=== PATIENT | male | born 1960 | race Caucasian/White ===

== ENCOUNTER → 2017-12-24 | Outpatient (CLI) | payer OTHER ==
[~2017-12-24] MED LIST: ASPI-630 PO; ATORVASTATIN CA80 MG PO; LISI40TA PO; METO25TA4 PO
--- NOTE | 2017-12-24 12:15 | RAD ---
MR#: [id number] Date of Study: 12/24/2017 Ordering Physician: ESSENCE ANTHONY, Referring Physician: SANDIE GARRETT Tech: RT Jules Cherry) (N) APPROVED REPORT Test Type: Exercise Stress Nurse/Tech: RT Jo Ann (Izzy) (N) Test Indications: hypertension Cardiac History: CABG x 5 bypass 2014 Medications: see EHR Medical History: see EHR Resting ECG: sinus rhythm Resting Heart Rate: 70 bpm Resting Blood Pressure: 129/84mmHg Pretest Chest Pain: None Nurse/Tech Notes Consent: The procedure was explained to the patient in lay terms. Informed consent was witnessed. Brando eout was entered into [employer]. History and Stress Test performed by RT Jules Cherry) (N) Stress Symptoms short of breath POST EXERCISE Reason for Termination: Fatigue Target HR: Yes Max HR: 150 bpm 93% of Maximum Predicted HR: 161 bpm Exercise duration: 5:02 min:sec, 2 Stage Exercise capacity: 7METs Max Blood Pressure: 180/77mmHg Blood Pressure response to exercise: Normal blood pressure response during stress. Chest Pain: No. INTERPRETATION Stress EKG Conclusion: Baseline EKG showed sinus rhythm. No ischemic changes at peak stress. No arr hythmias. Imaging Protocol IMAGE PROTOCOL: Rest Tc-99m/stress Tc-99m 1 day Rest: Stress: Viability: Radiopharm.Tc99m KgesobnouSp18z Sestamibi Dose11.6mCi 34mCi Duration 15min. 10min. Img Date 12/24/2017 12/24/2017 Inj-Img [id number]. 60min. Rest Admin Site:IV - Right AntecubitalAdministrator: RT Jo Ann (Izzy)(N) Stress Admin Site: IV - Right AntecubitalAdministrator: RT Jules Cherry)(N) STRESS DATA End Diast. Vol.76.0mlAv. Heart Rate86.0bpm LVEDV index BSA1.0mlCardiac Output0.1L/min End Syst. Vol.14.0mlCO Index BSA5.3L/min LVESV index BSA0.0mlMyocardial Aprg993.0g Eject. Eonmtbus75.0% Stress Rates Pk. Fill Rate2.94EDV/secLVtime Pk. Fill 181.66msec Pk. Empty Rate4.66ESV/secLVtime Pk. Umxga515.73msec 1/3 Pk. Fill1.91EDV/sec Stress Scores Regional WT0.00Summed WT0.00 Regional WM0.00Summed WM3.00 Study quality was good. Left Ventricular size was Normal at Rest and Stress. Lung uptake was Normal. Left Ventricular ejection fraction is 82%. The rest and stress images show normal perfusion, normal contraction and thickening. LV Perf. Quant 17 Seg. SSS0.00 17 Seg. SRS0.00 17 Seg. SDS0.00 Stress Defect Extent (% LAD)0.00Rest Defect Extent (% LAD)0.00Rev. Defect Extent (% LAD)0.00 Stress Defect Extent (% LCX) 0.00Rest Defect Extent (% LCX)0.00Rev. Defect Extent (% LCX)0.00 Stress Defect Extent (% RCA)0.00Rest Defect Extent (% RCA)0.00Rev. Defect Extent (% RCA)0.00 Stress Defect Extent (% GAYATRI)0.00Rest Defect Extent (% GAYATRI)0.00Rev. Defect Extent (% GAYATRI)0.00 Conclusion 1. Treadmill exercise cardioisotope stress test did not show any evidence of ischemia or infarct. 2. Normal left ventricular systolic function with ejection fraction calculated at 82%. 3. Low risk for cardiac events. Signed by : Benji Cortez, Electronically Approved : 12/24/2017 12:14:33
--- NOTE | 2017-12-24 12:17 | CARD ---
MR#: [id number] Date of Study: 12/24/2017 Ordering Physician: ESSENCE ANTHONY, Referring Physician: ESSENCE ANTHONY, Tech: BERLIN Negron APPROVED REPORT EXAM: Two-dimensional and M-mode echocardiogram with Doppler and color Doppler. Other Information Quality : AverageHR: 87bpm INDICATION LV Function:SystolicDiastolic Post Op 2D DIMENSIONS RVDd3.6 (2.9-3.5cm)Left Atrium(2D)3.0 (1.6-4.0cm) IVSd1.7 (0.7-1.1cm)Aortic Root(2D)2.6 (2.0-3.7cm) LVDd3.8 (3.9-5.9cm)LVOT Diameter2.1 (1.8-2.4cm) PWd1.6 (0.7-1.1cm)LVDs2.3 (2.5-4.0cm) FS (%) 39.7 %SV42.9 ml LVEF(%)71.0 (>50%) Aortic Valve AoV Peak Tristan.80.8cm/sAoV VTI16.1cm AO Peak GR.2.6mmHgLVOT Peak Tristan.72.9cm/s LVOT VTI 13.97cmAO Mean GR.2mmHg CHITO (VMAX)3.08xw0TDI (VTI)3.09cm2 Mitral Valve MV E Uybqoxzp59.8cm/sMV DECEL EMUY110nw MV A Gpekceba21.5cm/sE/A Ratio0.9 Pulmonary Valve PV Peak Cycbvzqo14.9cm/sPV Peak Grad.3mmHg Tricuspid Valve TR P. Lkiozcyu00zw/sTR Peak Gr.4mmHg LEFT VENTRICLE The left ventricle is normal size. There is moderate concentric left ventricular hypertrophy. The lef t ventricular systolic function is normal. The ejection fraction is estimated at 60-65%. There is nor mal LV segmental wall motion. Transmitral Doppler flow pattern is Grade I-abnormal relaxation pattern . RIGHT VENTRICLE The right ventricle is normal size. The right ventricular systolic function is normal. ATRIA The left atrium size is normal. The right atrium size is normal. The interatrial septum is intact wit h no evidence for an atrial septal defect or patent foramen ovale as noted on 2-D or Doppler imaging. AORTIC VALVE The aortic valve is thickened but opens well. Doppler and Color Flow revealed no significant aortic r egurgitation. There is no significant aortic valvular stenosis. There is no aortic valvular vegetatio n. MITRAL VALVE The mitral valve is thickened but opens well. There is no evidence of mitral valve prolapse. There is no mitral valve stenosis. Doppler and Color Flow revealed no mitral valve regurgitation noted. TRICUSPID VALVE The tricuspid valve is normal in structure and function. Doppler and Color Flow revealed no tricuspid valve regurgitation noted. There is no tricuspid valve prolapse or vegetation. There is no tricuspid valve stenosis. PULMONIC VALVE The pulmonic valve is not well visualized. Doppler and Color Flow revealed trace pulmonic valvular re gurgitation. There is no pulmonic valvular stenosis. GREAT VESSELS The aortic root is normal in size. The IVC was not visualized. PERICARDIAL EFFUSION There is no pleural effusion. There is no evidence of significant pericardial effusion. Critical Notification Critical Value: No <Conclusion> The left ventricular systolic function is normal. The ejection fraction is estimated at 60-65%. There is normal LV segmental wall motion. There is no evidence of significant pericardial effusion. Signed by : Benji Cortez, Electronically Approved : 12/24/2017 12:16:26
== END | disposition home or self-care (01) ==
LOC: NM 07:28
PROVIDERS: ATTEND Internal Medicine Cardiovascular Disease
DX: I25.10 Atherosclerotic heart disease of native coronary artery without angina pectoris (principal); I11.9 Hypertensive heart disease without heart failure; R53.83 Other fatigue
CPT/HCPCS: 78452; 93017; 93306; 96374; 96376; A9500

== ENCOUNTER → 2018-12-09 | Outpatient (CLI) | payer MEDICARE ==
--- NOTE | 2018-12-09 22:23 | RAD ---
MR#: [id number] Date of Study: 12/09/2018 Ordering Physician: ESSENCE ANTHONY, Referring Physician: ESSENCE ANTHONY, Tech: Jeaneth Khalil RDMS, RVT, RTR APPROVED REPORT Patient Location: OUT-PATIENT Laterality:Bilateral Indications CAD Risk Factors Grayscale images of the bilateral carotid arterial vessels reveals moderate plaque bilaterally at the level of the carotid bulbs. Based on velocity criteria there is approximately 50-69% stenosis involv ing the right proximal internal carotid artery. Similarly there is also a 50-69% stenosis involving t he left proximal internal carotid artery. The bilateral external carotid arteries do not demonstrate any significant obstructive disease. ICA to CCA ratios are overall within acceptable ranges. The bilateral vertebral velocities are diminished but antegrade. Doppler Spectral Velocity Analysis Right Left pCCA 75/21 cm/spCCA 75/17 cm/s mCCA 79/24 cm/smCCA 100/18 cm/s dCCA 84/23 cm/sdCCA 87/19 cm/s Bulb 74/24 cm/sBulb 84/17 cm/s ECA 67/ cm/sECA 73/ cm/s pICA 126/33 cm/spICA 159/62 cm/s Adrianna 96/32 cm/smICA 95/25 cm/s dICA 79/31 cm/sdICA 64/18 cm/s Vert. 21/ cm/sVert. 36/ cm/s ICA/CCA 1.50ICA/CCA 2.12 Critical Notification Critical Value: No <Conclusion> 1. Moderate bilateral proximal internal carotid artery disease in the 50-69% range by velocity criter ia. Signed by : Reji Hernandez, Electronically Approved : 12/09/2018 22:23:31
== END | disposition home or self-care (01) ==
LOC: US 07:35
PROVIDERS: ATTEND Internal Medicine Cardiovascular Disease
DX: I65.23 Occlusion and stenosis of bilateral carotid arteries (principal); I25.10 Atherosclerotic heart disease of native coronary artery without angina pectoris; D17.79 Benign lipomatous neoplasm of other sites; E03.9 Hypothyroidism, unspecified
CPT/HCPCS: 93880